=== PATIENT | male | born 1970 | race African-American/Black ===

== ENCOUNTER 2018-01-03 20:29 | Emergency (ER) | payer OTHER ==
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
--- NOTE | 2018-01-03 21:47 | XR ---
PROCEDURE: XR ribs LT w pa chest xray, 3 views DATE AND TIME: 01/03/2018 9:27 PM REFERRING PHYSICIAN: Estrellita Rebolledo CLINICAL INDICATION: PHH, Pain TECHNIQUE: Department protocol. COMPARISON: None FINDINGS: There is no fracture or malalignment. The soft tissues are unremarkable. IMPRESSION: NO ACUTE PROCESS.
--- NOTE | 2018-01-03 21:48 | XR ---
PROCEDURE: XR thoracic spine complete 3 views DATE AND TIME: 01/03/2018 9:29 PM REFERRING PHYSICIAN: Estrellita Rebolledo CLINICAL INDICATION: PHH, Pain TECHNIQUE: Department protocol. COMPARISON: None FINDINGS: There is no fracture or malalignment. The soft tissues are unremarkable. IMPRESSION: NO ACUTE PROCESS.
[2018-01-03 22:29] VITALS: BP 119/73; PULSE 73; RESP 20; TEMP 98.3
== END 2018-01-03 22:02 | disposition home or self-care (01) ==
LOC: EC 20:29
DX: R07.81 Pleurodynia (principal); M54.6 Pain in thoracic spine; F41.9 Anxiety disorder, unspecified; F17.200 Nicotine dependence, unspecified, uncomplicated; Z91.040 Latex allergy status; Z79.899 Other long term (current) drug therapy; V49.10XA Passenger injured in collision with unspecified motor vehicles in nontraffic accident, initial encounter; Y92.481 Parking lot as the place of occurrence of the external cause
CPT/HCPCS: 72072; 99284

== ENCOUNTER 2018-07-22 14:19 | Emergency (ER) | payer OTHER ==
[2018-07-22 14:27] VITALS: BP 138/83; PULSE 96; RESP 18; TEMP 97.5
--- NOTE | 2018-07-22 15:19 | XR ---
EXAMINATION TYPE: XR hand complete LT DATE OF EXAM: 07/22/2018 CLINICAL HISTORY: pain TECHNIQUE: Frontal, lateral and oblique images of the left hand are obtained. COMPARISON: None. FINDINGS: There is no acute fracture/dislocation evident. The joint spaces appear within normal limi ts. The overlying soft tissue appears unremarkable. IMPRESSION: There is no acute fracture or dislocation. ICD 10 NO FRACTURE, INITIAL EVALUATION
--- NOTE | 2018-07-22 15:20 | XR ---
EXAMINATION TYPE: XR elbow complete LT DATE OF EXAM: 07/22/2018 CLINICAL HISTORY: Left-sided arm pain one month after fall TECHNIQUE: Frontal, lateral and oblique images of the left elbow are obtained. COMPARISON: None FINDINGS: There is no acute fracture/dislocation evident in the left elbow. No abnormal fat pad sig ns are seen. The overlying soft tissue appears unremarkable. IMPRESSION: There is no acute fracture or dislocation in the left elbow.
--- NOTE | 2018-07-22 15:21 | ED ---
Upper Extremity HPI - General Chief Complaint: Extremity Injury, Upper Stated Complaint: Lt arm injury Time Seen by Provider: 07/22/18 14:45 Source: patient, RN notes reviewed Mode of arrival: ambulatory Limitations: no limitations - History of Present Illness Initial Comments: 48 -year-old male presents emergency Department chief complaint of left arm pain. Patient states that he injury proximal one month ago had x-rays which were negative at that time. Patient states he fell down multiple steps. Patient states he's had continuation of pain. He does see pain management states that he is taking his pain medication as directed and was given steroids with no improvement. Patient continues to have left elbow pain, left hand pain. Patient denies any associated weakness denies any paresthesias. Denies any reevaluation by orthopedics. - Related Data Home Medications Medication Instructions Recorded Confirmed Amitriptyline HCl [Elavil] 25 mg PO HS 07/22/15 01/03/18 Previous Rx's Medication Instructions Recorded Ibuprofen [Motrin] 600 mg PO Q8HR PRN #30 tab 07/22/18 Allergies Allergy/AdvReac Type Severity Reaction Status Date / Time latex Allergy Rash/Hives Verified 07/22/18 14:27 Review of Systems ROS Statement: Those systems with pertinent positive or pertinent negative responses have been documented in the HPI. ROS Other: All systems not noted in ROS Statement are negative. Past Medical History Additional Past Medical History / Comment(s): Chronic back pain History of Any Multi-Drug Resistant Organisms: None Reported Past Surgical History: No Surgical Hx Reported Past Psychological History: Anxiety Smoking Status: Current every day smoker Past Alcohol Use History: Occasional Past Drug Use History: Marijuana General Exam Limitations: no limitations General appearance: alert, in no apparent distress Head exam: Present: atraumatic, normocephalic, normal inspection Neck exam: Present: normal inspection, full ROM. Absent: tenderness, meningismus, lymphadenopathy Respiratory exam: Present: normal lung sounds bilaterally. Absent: respiratory distress, wheezes, rales, rhonchi, stridor Cardiovascular Exam: Present: regular rate, normal rhythm, normal heart sounds. Absent: systolic murmur, diastolic murmur, rubs, gallop, clicks Extremities exam: Present: other (Left hand there is moderate tenderness and moderate deformity neurovascular intact, proximal left forearm tenderness of the radial head patient's Torres able to extend, pronate and supinate. There is no proximal or distal humeral tenderness) Neurological exam: Present: reflexes normal. Absent: motor sensory deficit Skin exam: Present: warm, dry, intact, normal color. Absent: rash Course Vital Signs 07/22/18 14:25 Temperature 97.5 F L Pulse Rate 96 Respiratory 18 Rate Blood Pressure 138/83 O2 Sat by Pulse 99 Oximetry Medical Decision Making - Medical Decision Making 40-year-old male present emergency from for left arm pain is continue after a fall. X-rays obtained no acute abnormality. Patient will follow-up with orthopedics. Disposition Clinical Impression: Left arm pain Disposition: HOME SELF-CARE Condition: Stable Instructions: Arm Pain (ED) Additional Instructions: Please return to the Emergency Department if symptoms worsen or any other concerns. Prescriptions: Ibuprofen [Motrin] 600 mg PO Q8HR PRN #30 tab PRN Reason: Pain Is patient prescribed a controlled substance at d/c from ED?: No Referrals: None,Stated [Primary Care Provider] - 1-2 days Lorena Piedra, [Doctor of Osteopathic Medicine] - 1-2 days Time of Disposition: 15:34
== END 2018-07-22 15:42 | disposition home or self-care (01) ==
LOC: EC 14:19
DX: M79.602 Pain in left arm (principal); M25.522 Pain in left elbow; M79.642 Pain in left hand; F41.9 Anxiety disorder, unspecified; F17.200 Nicotine dependence, unspecified, uncomplicated; Z91.040 Latex allergy status; Z79.899 Other long term (current) drug therapy; W10.9XXA Fall (on) (from) unspecified stairs and steps, initial encounter
CPT/HCPCS: 99283

== ENCOUNTER → 2023-12-30 | Outpatient (CLI) | payer BC ==
--- NOTE | 2023-12-30 22:38 | XR ---
EXAMINATION TYPE: XR pelvis AP view DATE OF EXAM: 12/30/2023 COMPARISON: 12/30/2023. X-ray HISTORY: Right hip pain TECHNIQUE: AP pelvis FINDINGS: Femoral heads articulate with the acetabulum. Subchondral cysts appear to be present within the femoral heads. Joint spaces are preserved. Symphysis pubis and sacroiliac joints are normal. IMPRESSION: 1. No acute osseous abnormality. 2. Subchondral cysts within the heads
--- NOTE | 2023-12-30 22:40 | XR ---
EXAMINATION TYPE: XR Hip Complete RT DATE OF EXAM: 12/30/2023 COMPARISON: AP pelvis HISTORY: Right hip pain TECHNIQUE: Two-view right hip FINDINGS: Femoral head articulates with the acetabulum. Another fairly large subchondral cyst within the femoral head. Joint space appears preserved. No acute fractures are identified. Consider MRI of t he right hip. Findings not appear typical for osteoarthritis. Consider erosive type arthritides withi n the differential IMPRESSION: 1. Large subchondrala cysts within the right femoral head. Consider erosive arthritides. Consider MR I for additional evaluation
--- NOTE | 2023-12-30 22:41 | XR ---
EXAMINATION TYPE: XR lumbar spine 2 or 3V DATE OF EXAM: 12/30/2023 COMPARISON: None HISTORY: Pain TECHNIQUE: Three-view lumbar spine FINDINGS: There are 5 lumbar-type vertebral bodies. Pedicles are intact. Disc heights are preserved. Vertebral body heights are preserved. Alignment is normal. IMPRESSION: 1. Unremarkable three-view lumbar spine.
== END | disposition home or self-care (01) ==
LOC: RADXRMAIN 17:54
PROVIDERS: ATTEND Chiropractor
DX: M85.651 Other cyst of bone, right thigh (principal); M54.50 Low back pain, unspecified; M25.551 Pain in right hip
CPT/HCPCS: 72100; 72170; 73502